=== PATIENT | female | born 1980 | race Caucasian/White ===

== ENCOUNTER 2019-02-25 19:24 | Emergency (ER) | payer OTHER ==
[2019-02-25] MEDS ORDERED: NORMAL SALINE 1000 ML 1,000 ML IV ONE (20:03)
[2019-02-25 20:09] LABS: ALBUMIN 4.2 g/dL (3.5-5.0); ALKALINE PHOSPHATASE 71 U/L (38-126); ANION GAP 10 (5-19); ASPARTATE AMINO TRANSFERASE 16 U/L (14-36); BILIRUBIN,DIRECT 0.3 mg/dL (0.0-0.4); BILIRUBIN,TOTAL 0.5 mg/dL (0.2-1.3); BLOOD UREA NITROGEN 12 mg/dL (7-20); CALCIUM 9.1 mg/dL (8.4-10.2); CARBON DIOXIDE 21 mmol/L (22-30); CHLORIDE 107 mmol/L (98-107); GLUCOSE 130 mg/dL (75-110); POTASSIUM 3.3 mmol/L (3.6-5.0); TOTAL PROTEIN 6.9 g/dL (6.3-8.2)
[2019-02-25 20:10] LABS: ACETAMINOPHEN < 10 ug/mL (10-30); ALCOHOL < 10 mg/dL (NONE DETECTED); SALICYLATE < 1.0 mg/dL (2.0-20.0)
[2019-02-25 20:11] LABS: ABSOLUTE EOSINOPHILS # (AUTO) 0.1 10^3/uL (0.0-0.6); ABSOLUTE LYMPHOCYTES (AUTO) 1.4 10^3/uL (0.5-4.7); ABSOLUTE MONOCYTES (AUTO) 0.6 10^3/uL (0.1-1.4); ABSOLUTE NEUT (AUTO) 4.3 10^3/uL (1.7-8.2); BASOPHILS % (AUTO) 0.3 % (0-2); EOSINOPHILS % (AUTO) 1.5 % (0-6); HEMATOCRIT 32.8 % (36.0-47.0); HEMOGLOBIN 10.6 g/dL (12.0-15.5); LYMPHOCYTES % (AUTO) 22.2 % (13-45); MEAN CORPUSCULAR HEMOGLOBIN 25.3 pg (27.0-33.4); MEAN CORPUSCULAR HGB CONC 32.4 g/dL (32.0-36.0); MEAN CORPUSCULAR VOLUME 78 fl (80-97); MONOCYTES % (AUTO) 9.7 % (3-13); PLATELET COUNT 337 10^3/uL (150-450); RED CELL DISTRIBUTION WIDTH 26.3 % (11.5-14.0); SEGMENTED NEUTROPHILS % (AUTO) 66.3 % (42-78); TOTAL CELLS COUNTED % (AUTO) 100 %; WHITE BLOOD COUNT 6.5 10^3/uL (4.0-10.5)
--- NOTE | 2019-02-25 20:18 | ER Document Report ---
ED General - General Chief Complaint: Possible Overdose Stated Complaint: OVERDOSE Time Seen by Provider: 02/25/19 19:41 Primary Care Provider: BUCKY ROLLINS PA [Primary Care Provider] - Follow up as needed TRAVEL OUTSIDE OF THE [place] IN LAST 30 DAYS: No - Related Data Allergies/Adverse Reactions: No Known Allergies Allergy (Unverified 08/31/10 09:54) Past Medical History - Social History Smoking Status: Never Smoker Chew tobacco use (# tins/day): No Frequency of alcohol use: None Drug Abuse: None Family History: None - Noncontributory Patient has suicidal ideation: Yes Patient has homicidal ideation: No Physical Exam - Vital signs Vitals: Temp Resp Pulse Ox 98.3 F 15 97 02/25/19 19:28 02/25/19 19:28 02/25/19 19:28 Patient brought in by paramedics as post overdose about an hour prior to arrival. Says she took some Fioricet some of her marijuana pills and some Inderal. Reports that all she took was the Inderal she says was trying to kill himself. She is limited at this time from patient His past medical history is significant for Jhon's anxiety. LMP is unknown PHYSICAL EXAMINATION: Vital signs were noted in triage note reviewed GENERAL: Well-appearing, well-nourished and in no acute distress. HEAD: Atraumatic, normocephalic. EYES: Pupils equal round and reactive to light, extraocular movements intact, sclera anicteric, conjunctiva are normal. ENT: nares patent, oropharynx clear without exudates. Moist mucous membranes. NECK: Normal range of motion, supple without lymphadenopathy LUNGS: Breath sounds clear to auscultation bilaterally and equal. No wheezes rales or rhonchi. HEART: Regular rate and rhythm without murmurs ABDOMEN: Soft, nontender, normoactive bowel sounds. No guarding, no rebound. No masses appreciated. EXTREMITIES: Normal range of motion, no pitting or edema. No cyanosis. NEUROLOGICAL: No focal neurological deficits. Moves all extremities spontaneously and on command. Speech is slow and deliberate. She is somewhat confused which is in the hospital but cannot tell me the year of the month she has good motor strength throughout PSYCH: Normal mood, normal affect. SKIN: Warm, Dry, normal turgor, no rashes or lesions noted. - Notes Notes: Addendum paramedics did administer charcoal counted the pills. She had a prescription the end of January is missing about 60 Fioricet about 70 of the Inderal is not a long-acting one. He really cannot tell me how many she is taking so for Course - Re-evaluation Re-evalutation: 02/26/19 03:45 Addendum repeat Tylenol level was 0 - Vital Signs Vital signs: Temp Pulse Resp BP Pulse Ox 98 F 11 L 118/71 98 02/26/19 01:30 02/26/19 01:30 02/26/19 01:30 02/26/19 01:30 02/26/19 03:44 ED she has remained stable she is been on a monitor technician her blood pressures been stable as well as her heart rate. We did discuss case with the poison center who recommended observation for 6 hours. On repeat exam is now alert and oriented x4. Says she only took a few of the Inderal and 2-3 of the Fioricet. She keeps some of the pills and another bottle. Medical decision making patient presents with a overdose in a suicide attempt to be medically cleared and will need mental health evaluation. Patient will be passed on to the morning doctor for follow-up - Laboratory Result Diagrams: 02/25/19 19:28 02/25/19 19:28 Laboratory results interpreted by me: 02/25/19 02/25/19 02/25/19 19:28 19:28 20:42 Hgb 10.6 L Hct 32.8 L MCV 78 L MCH 25.3 L RDW 26.3 H Potassium 3.3 L Carbon Dioxide 21 L Glucose 130 H Urine Glucose (UA) 50 H Urine Ketones TRACE H Urine Blood SMALL H Urine Bilirubin MODERATE H Ur Leukocyte Esterase SMALL H Salicylates < 1.0 L Acetaminophen < 10 L 02/25/19 22:00 Hgb Hct MCV MCH RDW Potassium Carbon Dioxide Glucose Urine Glucose (UA) Urine Ketones Urine Blood Urine Bilirubin Ur Leukocyte Esterase Salicylates Acetaminophen < 10 L - EKG Interpretation by Me Additional EKG results interpreted by me: 02/25/19 20:19 EKG read by me shows a sinus rhythm at a rate of 65. Is normal axis and QRS and some minimal nonspecific ST wave changes which include flattening of the T waves no old EKGs for comparison Discharge - Discharge Clinical Impression: Encounter for medical screening examination, Suicidal ideations Overdose Qualifiers: Encounter type: initial encounter Injury intent: intentional self-harm Qualified Code(s): T50.902A - Poisoning by unspecified drugs, medicaments and biological substances, intentional self-harm, initial encounter Condition: Critical Disposition: OTHER Referrals: BUCKY ROLLINS PA [Primary Care Provider] - Follow up as needed
[2019-02-25 20:26] LABS: ANISOCYTOSIS 3+; OVALOCYTES 1+; PLATELET COMMENT ADEQUATE
[2019-02-25 20:58] LABS: APPEARANCE,URINE CLEAR; BILIRUBIN,URINE MODERATE (NEGATIVE); COLOR,URINE YELLOW; GLUCOSE, URINE 50 mg/dL (NEGATIVE); KETONES,URINE TRACE mg/dL (NEGATIVE); LEUKOCYTE ESTERASE,URINE SMALL (NEGATIVE); NITRITE,URINE NEGATIVE (NEGATIVE); PROTEIN,URINE NEGATIVE (NEGATIVE); URINE SPECIFIC GRAVITY 1.017; UROBILINOGEN,URINE NEGATIVE mg/dL (<2.0)
[2019-02-25 21:12] LABS: URINE AMPHETAMINES SCREEN UNCONFIRMED POSITIVE; URINE BARBITURATES SCREEN UNCONFIRMED POSITIVE; URINE BENZODIAZEPINES SCREEN NEGATIVE; URINE COCAINE SCREEN NEGATIVE; URINE MARIJUANA (THC) SCREEN UNCONFIRMED POSITIVE; URINE METHADONE SCREEN NEGATIVE; URINE PHENCYCLIDINE SCREEN NEGATIVE
[2019-02-26] MEDS ORDERED: POTASSIUM CHLORIDE 10 MEQ CAPSULE.ER PO ONE (03:48)
[2019-02-26] MEDS ORDERED: IBUPROFEN 600 MG TABLET PO ONE (03:48)
--- NOTE | 2019-02-26 10:22 | ER Document Report ---
Doctor's Note Notes: 02/26/19 10:20 Chart reviewed rounded on patient. Patient reports she is going through a bad divorce. Reports she is been for the past 20 years and has 5 kids. Her is in the . She reports he would not let her kids visit with her kids yesterday which is what started her feelings of suicide. He reports she is never attempted suicide in the past. She reports that she is currently taking medication for anxiety and depression. 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 Patient is very tearful. Denies any medical concerns such as fever vomiting diarrhea. Reports she is having some loose stools now that are black. Patient received charcoal last night. Denies abdominal pain. Patient is calm. Was instructed on plan of care. She is medically discharged for treatment by psych and inpatient therapy.. PHYSICAL EXAMINATION: GENERAL: Well-appearing and in no acute distress HEAD: Atraumatic, normocephalic. EYES: Pupils equal round and reactive to light, extraocular movements intact, sclera anicteric, conjunctiva are normal. ENT: nares patent, Moist mucous membranes. NECK: Normal range of motion, supple without lymphadenopathy LUNGS: CTAB and equal. No wheezes rales or rhonchi. HEART: Regular rate and rhythm without murmurs ABDOMEN: Soft, no tenderness. No guarding, no rebound EXTREMITIES: Normal range of motion, no pitting edema. No cyanosis. NEUROLOGICAL: Cranial nerves grossly intact. Normal sensory/motor exams. PSYCH: Normal mood, normal affect. SKIN: Warm, Dry, normal turgor, no rashes or lesions noted
[2019-02-26 14:58] VITALS: BP 135/84
--- NOTE | 2019-02-26 23:52 | EKG REPORT ---
SEVERITY:- OTHERWISE NORMAL ECG - SINUS RHYTHM MINIMAL ST DEPRESSION, ANTEROLATERAL LEADS : Confirmed by: Fanny Bowers 26-Feb-2019 23:51:32
== END 2019-02-26 15:08 | disposition other institution (70) ==
LOC: ER 19:24
DX: T50.902A Poisoning by unspecified drugs, medicaments and biological substances, intentional self-harm, initial encounter (principal)
CPT/HCPCS: 93005; 36415; 80307 ×4; 84703; 85025; 80053; 81001; 93010; J7030; 96360; 96361; 99285